=== PATIENT | female | born 1955 | race African-American/Black ===

== ENCOUNTER 2024-12-15 11:20 | Emergency (ER) | payer OTHER ==
[2024-12-15 11:50] VITALS: RESP 18; BMI 29.2
[2024-12-15] MEDS ORDERED: ACETAMINOPHEN 325 MG TABLET (FP) ONE (12:29)
[2024-12-15] MEDS ORDERED: LIDOCAINE 5% TOPICAL PATCH ONE (12:30)
[2024-12-15] MEDS ORDERED: KETOROLAC TROMETHAMINE 30 MG/1 ML VIAL ONE (12:30)
[2024-12-15] MEDS: LIDOCAINE 5% TOPICAL PATCH TP ONE (12:42)
[2024-12-15] MEDS: KETOROLAC TROMETHAMINE 30 MG/1 ML VIAL IM ONE (12:42)
[2024-12-15] MEDS: ACETAMINOPHEN 500 MG TABLET (FP) PO ONE (12:42)
[2024-12-15] MEDS ORDERED: METHOCARBAMOL 500 MG TABLET ONE (13:30)
[2024-12-15] MEDS: METHOCARBAMOL 500 MG TABLET PO ONE (13:34)
[2024-12-15] MEDS: MECLIZINE HCL 25 MG TABLET (FP) PO ONE (14:04)
[2024-12-15 14:16] VITALS: BP 150/63; PULSE 68; TEMP 97.8
[2024-12-15] MEDS ORDERED: LIDOCAINE PATCH REMOVAL MC SCH (22:00)
== END 2024-12-15 14:21 | disposition home or self-care (01) ==
LOC: JER 11:20
PROC: 3E0233Z Introduction of Anti-inflammatory into Muscle, Percutaneous Approach (ICD-10-PCS; principal; 2024-12-15)
DX: M79.605 Pain in left leg (principal); M54.50 Low back pain, unspecified
CPT/HCPCS: 99284-25